=== PATIENT | male | born 1960 | race Caucasian/White ===

== ENCOUNTER 2023-01-13 09:58 | Outpatient (CLI) | payer OTHER, SELFPAY ==
--- NOTE | ~2023-01-13 | MR_ITS ---
EXAMINATION: MR abdomen wo/w con DATE: 01/13/2023 11:07 INDICATION: Left adrenal mass TECHNIQUE: Magnetic resonance imaging (MRI) of the abdomen was performed without and with 19 mL Multi juma intravenous contrast. Sequences included coronal T2-weighted SS-FSE, coronal and axial FS 2D-F IESTA, axial STIR FSE, axial T2-weighted SS-FSE, axial T2-weighted FS SS-FSE, axial diffusion-weighte d SE, axial dual-echo T1-weighted FSPGR, and axial and coronal T1-weighted LAVA. Postcontrast axial T 1-weighted LAVA images were obtained in a time course. Postcontrast coronal T1-weighted LAVA images w ere obtained. COMPARISON: Reported prior outside CT imaging is not submitted for comparison. FINDINGS: Heart size is normal. No pericardial or pleural effusion. Liver, partially decompressed gallbladder, spleen, pancreas, bilateral kidneys and right adrenal gland are normal. 3.2 x 2.1 x 2.8 cm ovoid mixe d solid and cystic left adrenal mass with prominent signal dropout associated with the solid componen t on opposed phase imaging consistent with an adrenal adenoma. Incidentally noted small accessory rig ht renal artery which supplies the upper pole. Visualized portion of the bowels are unremarkable. No pathologically enlarged abdominal lymphadenopathy. Mild thoracic dextrocurvature with mild spondylosi s. Small T1 hyperintense fat saturating hemangioma at T9. Marrow signal is otherwise unremarkable. IMPRESSION: 1. 3.2 cm mixed solid and cystic left adrenal adenoma with intracellular lipid in the solid component demonstrated by prominent signal dropout on opposed phase imaging. Reviewed, dictated and finalized at location [facility] [employer] IMPRESSION: 1. 3.2 cm mixed solid and cystic left adrenal adenoma with intracellular lipid in the solid component demonstrated by prominent signal dropout on opposed phas e imaging.
== END 2023-01-13 09:59 | disposition home or self-care (01) ==
PROVIDERS: Visit Provider Urology
DX: E27.8 Other specified disorders of adrenal gland (principal); D35.02 Benign neoplasm of left adrenal gland
CPT/HCPCS: 74183; A9577